=== PATIENT | female | born 1990 | race Two or more races ===

== ENCOUNTER 2022-09-25 10:58 | Emergency (ER) | payer OTHER ==
[~2022-09-25] VITALS: Ht 154.9 cm; Wt 53.5 kg
== END 2022-09-25 14:58 | disposition home or self-care (01) ==
LOC: ER 10:58
DX: S39.92XA Unspecified injury of lower back, initial encounter (principal); V49.9XXA Car occupant (driver) (passenger) injured in unspecified traffic accident, initial encounter; Y93.9 Activity, unspecified; Y92.413 State road as the place of occurrence of the external cause; Y99.9 Unspecified external cause status; M54.50 Low back pain, unspecified